=== PATIENT | male | born 1985 | race African-American/Black ===

== ENCOUNTER 2018-01-16 12:37 | Emergency (ER) | payer OTHER, SELFPAY ==
[2018-01-16] MEDS ORDERED: Ketorolac Tromethamine 30 MG/ML VIAL ONE (13:12)
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
[2018-01-16] MEDS ORDERED: HYDROcodone/Acetaminophen 10/325 mg Tablet ONE (15:04)
== END 2018-01-16 15:08 | disposition home or self-care (01) ==
LOC: ERS 12:37
DX: S39.012A Strain of muscle, fascia and tendon of lower back, initial encounter (principal); F17.210 Nicotine dependence, cigarettes, uncomplicated; V43.52XA Car driver injured in collision with other type car in traffic accident, initial encounter
CPT/HCPCS: 71045; 72128; 72131; 96374; J1885

== ENCOUNTER 2018-01-17 11:16 | Emergency (ER) | payer OTHER, SELFPAY ==
[2018-01-17] MEDS ORDERED: Acetaminophen 500 MG TAB ONE (12:56)
[2018-01-17] MEDS ORDERED: Ketorolac Tromethamine 60 MG/2 ML VIAL ONE (12:56)
[2018-01-17] MEDS ORDERED: Ondansetron ODT 8 MG TAB ONE (12:56)
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
== END 2018-01-17 13:40 | disposition home or self-care (01) ==
LOC: ERS 11:16
DX: R51 Headache (principal); F17.210 Nicotine dependence, cigarettes, uncomplicated; Z79.899 Other long term (current) drug therapy
CPT/HCPCS: 70450; 96372; J1885